=== PATIENT | male | born 1980 | race African-American/Black ===

== ENCOUNTER 2019-03-06 22:27 | Emergency (ER) | payer OTHER ==
[~2019-03-06] VITALS: Ht 177.8 cm; Wt 131.5 kg
[2019-03-06 23:09] LABS: BASOPHILS # (AUTO) 0.1 /CMM (0.0-0.2); EOSINOPHILS % (AUTO) 3.1 % (0.0-6.0); HEMATOCRIT 41 % (39-51); HEMOGLOBIN 13.6 g/dL (13.5-17.5); LYMPHOCYTES # (AUTO) 2.2 /CMM (0.8-4.8); LYMPHOCYTES % (AUTO) 40.4 % (20.0-44.0); MEAN CORPUSCULAR HGB CONC 33 g/dl (31.0-36.0); MEAN CORPUSCULAR VOLUME 90 fL (80-96); MONOCYTES # (AUTO) 0.6 /CMM (0.1-1.30); MONOCYTES % (AUTO) 11.3 % (2.0-12.0); NEUTROPHILS # (AUTO) 2.5 /CMM (1.8-8.9); NEUTROPHILS % (AUTO) 44.2 % (43.0-81.0); PLATELET COUNT (AUTO) 199 /CMM (150-450); RED BLOOD CELL COUNT(AUTO) 4.54 MIL/uL (4.5-6.0); WHITE BLOOD COUNT (AUTO) 5.6 K/uL (4.3-11.0)
[2019-03-06 23:14] LABS: CALCIUM, SERUM 8.6 mg/dL (8.5-10.1); CREATININE 0.9 mg/dL (0.6-1.3); POTASSIUM 3.5 mmol/L (3.5-5.1)
[2019-03-06 23:22] LABS: ALBUMIN 3.4 g/dL (3.4-5.0); BILIRUBIN,DIRECT 0.2 mg/dL (0.0-0.2); BILIRUBIN,TOTAL 0.3 mg/dL (0.2-1.0); SALICYLATE 3.2 mg/dL (2.8-20.0); TOTAL PROTEIN, SERUM 8.2 g/dL (6.4-8.2)
[2019-03-06 23:25] LABS: APPEARANCE,URINE CLEAR (CLEAR); BILIRUBIN,URINE NEGATIVE (NEGATIVE); BLOOD, URINE NEGATIVE Ery/uL (NEGATIVE); COLOR,URINE YELLOW (YELLOW); KETONES,URINE NEGATIVE (NEGATIVE); LEUKOCYTE ESTERASE ,URINE NEGATIVE (NEGATIVE); NITRITE, URINE NEGATIVE (NEGATIVE); PH,URINE 6.5 (5.0-8.0); PROTEIN,URINE NEGATIVE (NEGATIVE); UGLUCOSE NEGATIVE (NEGATIVE); UROBILINOGEN,URINE 0.2 EU/dL (0.2)
--- NOTE | 2019-03-07 00:01 | NUR ---
Patient is resting comfortably in bed with eyes closed. Easily aroused. VSS. SITTER AT BEDSIDE.
--- NOTE | 2019-03-07 02:11 | NUR ---
Patient is resting comfortably in bed with eyes closed. Easily aroused. VSS. SITTER AT BEDSIDE.
--- NOTE | 2019-03-07 05:59 | NUR ---
Patient is resting comfortably in bed with eyes closed. Easily aroused. VSS. SITTER AT BEDSIDE
--- NOTE | 2019-03-07 08:20 | NUR ---
Social service consult requested by Dr. Eden for suicidal ideations and ETOH. Pt. is a 39 year old -[place] male who came to the emergency Department yesterday with complaints of suicidal and homicidal ideation. Per ED MD notes, the pt is also noted to be acutely intoxicated and does admit to alcohol ingestion. Pt. had no no specific plan in which he would hurt himself or someone else. MATERIALS COORDINATOR met with the pt. bedside. Pt. is alert and oriented x 4. Pt. has a sitter bedside. Pt. appears to be over-weight. Pt is cooperative and pleasant with MATERIALS COORDINATOR during the assessment. Pt. states he is homeless and has been for 3 years. Pt. receives GR and Food stamps. Pt is not linked to any housing services in the community. Pt has not heard of the [place] [facility]. MATERIALS COORDINATOR explained the winter residential process. Pt is interested in going to the residential. Pt. uses marijuana occasionally. Pt. smokes up to 4 cigarettes per day. Pt minimized how much alcohol he drinks. When asked, pt. states he only drinks 2 to 3 beers daily, however pt's alcohol lever on arrival in ED was 461. Pt is currently denying suicidal and homicidal ideations and visual/auditory hallucinations at this time. Pt. denies any psychiatric illnesses. Pt. was provided with the [facility] [id number] [place] [facility] list and explained to pt. to closest pickers material handlers location. Pt. was also provided with the following homeless resources: [facility] located at [address] [facility] [facility] [address] ; [place], [address], [place] [place] ; [facility] [place], [address], [place] [place] ; [facility] Homeless Resource Directory which includes food stamps, transitional housing, showers and hot meals etc; Mental Health clinics such as [facility] ; [facility] ; Health clinics;[facility] and Alcohol treatment centers such as [facility], ; [facility] Substance Abuse Hotline and [facility] . Pt. was provided with breakfast and TAP card. Homeless patient waiver form was signed by the pt and placed in pt's chart. SW updated BRYANNA Harper and Dr. Eden with pt's discharge plan.
[2019-03-07 10:12] VITALS: BP 132/65
--- NOTE | 2019-03-07 10:14 | NUR ---
Patient discharged to home in stable condition. Written and verbal after care instructions given. Patient verbalizes understanding of instruction.
== END 2019-03-07 10:12 | disposition home or self-care (01) ==
LOC: ER 22:29
DX: R45.851 Suicidal ideations (principal); R45.850 Homicidal ideations; F10.129 Alcohol abuse with intoxication, unspecified; Y90.8 Blood alcohol level of 240 mg/100 ml or more; Z59.0 Homelessness
CPT/HCPCS: 36415; 80048; 80076; 80305; 80307; 80329; 81001; 85025; 99284; G0480; 81000-TC

== ENCOUNTER 2019-03-07 21:52 | Emergency (ER) | payer OTHER ==
[~2019-03-07] VITALS: Ht 188 cm; Wt 120.2 kg
--- NOTE | 2019-03-07 22:01 | NUR ---
BIBS [facility] C/O "ABD USAMA, CP, AND BLOOD IN STOOL" SINCE YESTERDAY, PT TO BED 6, AWKE, ALERT, -SOB, NAD NOTED, VSS, PENDING MD FAGAN
[2019-03-08 00:14] LABS: BASOPHILS # (AUTO) 0.1 /CMM (0.0-0.2); BASOPHILS % (AUTO) 1.3 % (0.0-2.0); EOSINOPHILS % (AUTO) 3.5 % (0.0-6.0); HEMATOCRIT 39 % (39-51); HEMOGLOBIN 13.1 g/dL (13.5-17.5); LYMPHOCYTES # (AUTO) 1.7 /CMM (0.8-4.8); LYMPHOCYTES % (AUTO) 34.6 % (20.0-44.0); MEAN CORPUSCULAR HGB CONC 34 g/dl (31.0-36.0); MEAN CORPUSCULAR VOLUME 90 fL (80-96); MONOCYTES # (AUTO) 0.6 /CMM (0.1-1.30); MONOCYTES % (AUTO) 11.6 % (2.0-12.0); NEUTROPHILS # (AUTO) 2.5 /CMM (1.8-8.9); PLATELET COUNT (AUTO) 182 /CMM (150-450); RED BLOOD CELL COUNT(AUTO) 4.31 MIL/uL (4.5-6.0)
[2019-03-08 00:25] LABS: CALCIUM, SERUM 8.7 mg/dL (8.5-10.1); CARBON DIOXIDE 28 mmol/L (21-32); CHLORIDE 103 mmol/L (98-107); CREATININE 0.9 mg/dL (0.6-1.3); GLUCOSE 111 mg/dL (74-106); POTASSIUM 3.4 mmol/L (3.5-5.1); SODIUM SERUM 140 mmol/L (136-145); UREA NITROGEN, BLOOD 13 mg/dL (7-18)
[2019-03-08 00:36] LABS: ALANINE AMINOTRANSFERASE 57 U/L (12-78); ALBUMIN 3.2 g/dL (3.4-5.0); ALKALINE PHOSPHATASE 122 U/L (46-116); ASPARTATE AMINOTRANSFERASE 73 U/L (15-37); BILIRUBIN,DIRECT 0.1 mg/dL (0.0-0.2); BILIRUBIN,TOTAL 0.4 mg/dL (0.2-1.0); TOTAL PROTEIN, SERUM 7.9 g/dL (6.4-8.2)
[2019-03-08 00:37] LABS: B-TYPE NATRIURETIC PEPTIDE < 5 PG/ML (0-125)
[2019-03-08] MEDS ORDERED: NITROGLYCERIN PACKET 1 GM PACKET ONE (00:40)
[2019-03-08] MEDS ORDERED: HYDROCODONE/APAP 10/325MG 1 EA TABLET ONE (00:40)
[2019-03-08] MEDS ORDERED: ONDANSETRON 4 MG TAB.RAPDIS ONE (00:40)
[2019-03-08] MEDS ORDERED: ASPIRIN 81 MG TAB.CHEW ONE (00:40)
[2019-03-08] MEDS: HYDROCODONE/APAP 10/325MG 1 EA TABLET PO ONE (00:52)
[2019-03-08] MEDS: NITROGLYCERIN PACKET 1 GM PACKET TD ONE (00:52)
[2019-03-08] MEDS: ASPIRIN 81 MG TAB.CHEW PO ONE (00:52)
[2019-03-08] MEDS: ONDANSETRON 4 MG TAB.RAPDIS SL ONE (00:52)
--- NOTE | 2019-03-08 08:40 | NUR ---
maryellen ordonez at bedside for eval
--- NOTE | 2019-03-08 09:18 | NUR ---
Patient discharged to home in stable condition. Written and verbal after care instructions given. Patient verbalizes understanding of instruction.
[2019-03-08 09:19] VITALS: BP 136/77
--- NOTE | 2019-03-08 10:29 | NUR ---
Social service consult requested by ARVIND Zamora for homelessness and ETOH. Per ED MD note, Pt. reports abdominal pain, chest pain, perhaps some small amount of blood in his stool since yesterday when he was here in the emergency room. Pt. denies suicidal ideations and consumption of alcohol, however pt's alcohol level is 461. PROTECTION SPECIALIST met with the pt. bedside. PROTECTION SPECIALIST is familiar with the pt from yesterday's visit in the ED. Pt. was in the ED yesterday for alcohol consumption as well. Pt. is alert and oriented x 4. PROTECTION SPECIALIST encouraged pt. to go to an alcohol rehabilitation program. Pt stated, he wants to change and stop drinking. Pt is homeless. Pt. currently denies suicidal and homicidal ideations and visual/auditory hallucinations at this time. Pt. denies any psychiatric illnesses. Pt. is ambulatory with a steady gait. PROTECTION SPECIALIST provided pt. with active listening, emotional support and supportive counseling. [facility] provided pt. with the following resources: [facility] [id number] Program List, [facility] [address] [facility] [address] [facility] ; [email or web address] [place], [address], [place] [place] ; [facility] [place], [address] ; [facility] Homeless Resource Directory which includes food stamps, transitional housing, showers and hot meals etc; Mental Health clinics such as [facility] ; [facility] ; Health clinics;[facility] and Alcohol treatment centers such as [facility], ; [facility] Substance Abuse Hotline and [facility] . Pt. was provided with breakfast and a TAP card. No other social service needs are requested at this time. PROTECTION SPECIALIST updated and ARVIND Zamora regarding pt's disposition.
== END 2019-03-08 09:19 | disposition home or self-care (01) ==
LOC: ER 21:53
DX: R07.89 Other chest pain (principal); R10.9 Unspecified abdominal pain; R56.9 Unspecified convulsions; K86.0 Alcohol-induced chronic pancreatitis; F10.10 Alcohol abuse, uncomplicated; Y90.9 Presence of alcohol in blood, level not specified
CPT/HCPCS: 36415; 71045; 74176; 80048; 80076; 83690; 83880; 84484 ×2; 85025; 85730; 93005; 99284; Q0162

== ENCOUNTER 2019-03-19 20:44 | Emergency (ER) | payer OTHER ==
[~2019-03-19] VITALS: Ht 182.9 cm; Wt 133.8 kg
[2019-03-19 20:45] VITALS: BP 121/77
[2019-03-19] MEDS ORDERED: ACETAMINOPHEN ES 500 MG TABLET PO ONE (21:30)
--- NOTE | 2019-03-19 22:24 | NUR ---
Patient does not wish to proceed with medical care recommended by ( SUZANNE). Patient given information related to possible complications, up to and including , which could occur as a result of leaving the hospital at this time. Patient verbalizes understanding of risks involved due to leaving against medical advice. Patient has signed AMA form.
== END 2019-03-19 22:24 | disposition left against medical advice (07) ==
LOC: ER 20:45
DX: S82.831A Other fracture of upper and lower end of right fibula, initial encounter for closed fracture (principal); R45.1 Restlessness and agitation; E66.01 Morbid (severe) obesity due to excess calories; Z68.41 Body mass index [BMI] 40.0-44.9, adult; W18.39XA Other fall on same level, initial encounter; Y93.89 Activity, other specified; Y92.89 Other specified places as the place of occurrence of the external cause; Y99.8 Other external cause status; Z59.0 Homelessness
CPT/HCPCS: 73610-TC

== ENCOUNTER 2019-05-03 14:00 | Emergency (ER) | payer MEDICAID, OTHER ==
[~2019-05-03] VITALS: Ht 182.9 cm; Wt 136.1 kg
--- NOTE | 2019-05-03 14:05 | NUR ---
DIRECTOR PERIOPERATIVE IS AT THE BEDSIDE FOR BLOOD DRAW.
--- NOTE | 2019-05-03 14:05 | NUR ---
PT AMBULATED INTO THE LOBBY ACTING AGGESSIVE AND EXPRESSING SI/HI. PT STATED: " I WANT TO KILL EVEYONE I SEE". PT APPEARS INTOXICATED. PT WAS ASSISTED TO BED 15 BY STAFF AND SECURITY. PT WAS PLACED ON THE MONITOR AND CONTINUOUS PULSE OX. PT REMOVED ALL LEADS. PT KEEPS ASKING THE SAME QUESTION AND WANTS STAFF TO TAKE HIM TO THE HOSPITAL. PT IS VERBALLY ABUSIVE TOWARDS STAFF.
--- NOTE | 2019-05-03 15:16 | NUR ---
PT BEGAN SPITTING ON THE GROUND. PT REC'D A FACE MASK.
[2019-05-03 15:21] LABS: BASOPHILS # (AUTO) 0.1 /CMM (0.0-0.2); BASOPHILS % (AUTO) 1.1 % (0.0-2.0); EOSINOPHILS % (AUTO) 2.1 % (0.0-6.0); HEMATOCRIT 41 % (39-51); HEMOGLOBIN 13.7 g/dL (13.5-17.5); LYMPHOCYTES # (AUTO) 2.3 /CMM (0.8-4.8); LYMPHOCYTES % (AUTO) 29.1 % (20.0-44.0); MEAN CORPUSCULAR HGB CONC 34 g/dl (31.0-36.0); MEAN CORPUSCULAR VOLUME 87 fL (80-96); MONOCYTES # (AUTO) 0.8 /CMM (0.1-1.30); MONOCYTES % (AUTO) 9.7 % (2.0-12.0); NEUTROPHILS # (AUTO) 4.7 /CMM (1.8-8.9); PLATELET COUNT (AUTO) 260 /CMM (150-450); RED BLOOD CELL COUNT(AUTO) 4.69 MIL/uL (4.5-6.0)
[2019-05-03 15:23] LABS: CALCIUM, SERUM 8.9 mg/dL (8.5-10.1); CARBON DIOXIDE 25 mmol/L (21-32); CHLORIDE 100 mmol/L (98-107); GLUCOSE 127 mg/dL (74-106); POTASSIUM 3.8 mmol/L (3.5-5.1); SODIUM SERUM 137 mmol/L (136-145); UREA NITROGEN, BLOOD 7 mg/dL (7-18)
[2019-05-03 15:30] LABS: ACETAMINOPHEN < 2 ug/ml (10-30); ALANINE AMINOTRANSFERASE 27 U/L (12-78); ALBUMIN 3.9 g/dL (3.4-5.0); ALCOHOL, BLOOD 410 mg/dL (0-0); ALKALINE PHOSPHATASE 137 U/L (46-116); ASPARTATE AMINOTRANSFERASE 27 U/L (15-37); BILIRUBIN,DIRECT 0.1 mg/dL (0.0-0.2); BILIRUBIN,TOTAL 0.3 mg/dL (0.2-1.0); SALICYLATE 3.7 mg/dL (2.8-20.0); TOTAL PROTEIN, SERUM 8.7 g/dL (6.4-8.2)
[2019-05-03] MEDS ORDERED: LORAZEPAM 1 MG TABLET PO ONE ×2 (16:00→17:00)
[2019-05-03] MEDS ORDERED: LORAZEPAM 1 MG TABLET ONE (16:06)
--- NOTE | 2019-05-03 16:30 | NUR ---
PT STATED THAT HE WANTED TO URINATE. ALBAN, EMT IS AT THE BEDSIDE ASSISTING PT WITH THE URINAL.
[2019-05-03] MEDS ORDERED: ONDANSETRON 4 MG TAB.RAPDIS SL ONE (17:00)
--- NOTE | 2019-05-03 17:05 | NUR ---
PT BECAME AGGITATED. IS SPITTING ON STAFF AND THROWING WATER AT THEM. PT PULLED OFF ALL LEADS FROM THE MONITOR. CODE STEVE WAS CALLED. SECURITY IS AT THE BEDSIDE. PT WAS PLACED IN 4 PT RESTRAINT. PT WANTS HELP, BUT IS INTERFERING IN PT CARE. DR TINSLEY IS AWARE.
--- NOTE | 2019-05-03 17:09 | NUR ---
VERBAL ORDER FROM DR TINSLEY. FOR 50 MG BENADRYL IM, 5 MG HALDOL IM, AND 2 MG ATIVAN IM.
[2019-05-03] MEDS ORDERED: LORAZEPAM INJ 2 MG/ML VIAL ONE (17:10)
[2019-05-03] MEDS ORDERED: diphenhydrAMINE HCL 50 MG/ML VIAL ONE (17:10)
[2019-05-03] MEDS ORDERED: HALOPERIDOL LACTATE INJ 5 MG/ML VIAL ONE (17:10)
--- NOTE | 2019-05-03 17:15 | NUR ---
PT REC'D MEDICATION ORDERED.
[2019-05-03 17:16] LABS: APPEARANCE,URINE Clear (CLEAR); BILIRUBIN,URINE Negative (NEGATIVE); BLOOD, URINE Negative Ery/uL (NEGATIVE); COLOR,URINE Yellow (YELLOW); KETONES,URINE Negative (NEGATIVE); LEUKOCYTE ESTERASE ,URINE Negative (NEGATIVE); NITRITE, URINE Negative (NEGATIVE); PH,URINE 6.5 (5.0-8.0); PROTEIN,URINE Negative (NEGATIVE); UGLUCOSE Negative (NEGATIVE); UROBILINOGEN,URINE 0.2 EU/dL (0.2)
--- NOTE | 2019-05-03 18:00 | NUR ---
PT APPEARS TO BE RELAXING. NO S/S OF AGGITATION. PT IS SLIGHTLY RESTLESS. SITTER AT THE BEDSIDE.
--- NOTE | 2019-05-03 19:05 | NUR ---
RESTRAINT OPENED AND ROM DONE.
[2019-05-03] MEDS ORDERED: LORAZEPAM INJ 2 MG/ML VIAL IM ONE (19:30)
[2019-05-03] MEDS ORDERED: HALOPERIDOL LACTATE INJ 5 MG/ML VIAL IM ONE (19:30)
[2019-05-03] MEDS ORDERED: diphenhydrAMINE HCL 50 MG/ML VIAL IM ONE (19:30)
--- NOTE | 2019-05-03 20:15 | NUR ---
PT APPEARS TO BE RESTING COMFORTABLY WITH NO S/S OF PAIN OR DISTRESS.
--- NOTE | 2019-05-03 21:10 | NUR ---
RESTRAINTS OPENED UP AND ROM DONE.
--- NOTE | 2019-05-03 22:05 | NUR ---
PT IS SLEEPING SOUNDLY WITH NO S/S OF PAIN OR DISTRESS.
--- NOTE | 2019-05-03 23:10 | NUR ---
RESTRAINTS REMOVED. PT IS SLEEPING BUT EASILY AROUSED. PT REC'D MORE WARM BLANKETS AND WILL CONTINUE TO BE MONITORED. SITTER IS AT THE BEDSIDE.
--- NOTE | 2019-05-04 02:09 | NUR ---
PT APPEARS TO BE SLEEPING SOUNDLY WITH NO S/S OF PAIN OR DISTRES. SITTER IS AT THE BEDSIDE.
--- NOTE | 2019-05-04 07:21 | NUR ---
ASSESSED PT ON BED ASLEEP, EASILY AROUSABLE,AAOX3, NOT IN RESPIRATORY DISTRESS, V/S STABLE, KEPT RESTED AND COMFORTABLE, WILL CONTINUE TO MONITOR.
--- NOTE | 2019-05-04 08:20 | NUR ---
PRIYA KRUEGER AT BEDSIDE FOR EVAL.
--- NOTE | 2019-05-04 08:20 | NUR ---
PT STATED HE IS FEELING SUICIDAL AND WANTS TO JUMP IN FRONT OF THE TRAIN.
--- NOTE | 2019-05-04 08:24 | NUR ---
Social service consult requested by MD for homelessness and ETOH. Per MD notes, pt is 39-year-old male who presented to the ED yesterday for evaluation of acute alcohol intoxication. The patient is self-referred. He was agitated and uncooperative upon arrival to the emergency department. Per chart review, the patient was seen at this emergency department on 03/06/2019 for acute alcohol intoxication. CT abdomen/pelvis obtained on 03/07/2019 showed ventral hernia. MIXING AND MOLDING MACHINE OPERATOR met with the pt bedside. Pt is alert and oriented x 4. Pt had his body and partial face covered with a sheet. Pt states he is homeless and suicidal. Pt reports his plan is to run in front of a train. MIXING AND MOLDING MACHINE OPERATOR contacted [facility] and initiated [facility] process to [facility]. Per Nixon, they will have a bed for the pt. MIXING AND MOLDING MACHINE OPERATOR to fax clinicals once pt"s alcohol level is below 100.
--- NOTE | 2019-05-04 08:24 | NUR ---
SECURITY AT BEDSIDE FOR WANDING.
--- NOTE | 2019-05-04 08:39 | NUR ---
NITHIN received a call from Kalpesh from [facility] intake requesting clinicals. NITHIN informed her she will send the fax as soon as pt's alcohol level is below 100.
--- NOTE | 2019-05-04 09:45 | NUR ---
er phleb at bedside for blood draw.
--- NOTE | 2019-05-04 10:40 | NUR ---
Clinical faxed to [facility] Addendum: 05/04/19 at 1116 by PRIYA KRUEGER WING SCORER received a callback from Kalpesh at [facility] informing SW she received the clinicals and will fax them to [facility].
--- NOTE | 2019-05-04 13:09 | NUR ---
PT ASLEEP ON BED EASILY AROUSABLE, AAOX4, NOT IN RESPIRATORY DISTRESS, V/S STABLE, KEPT RESTED AND COMFORTABLE, AWAITING TRANSFER INFO TO [facility].
--- NOTE | 2019-05-04 13:10 | NUR ---
PT WILL GO TO [facility].
--- NOTE | 2019-05-04 13:18 | NUR ---
DRY JANITOR received a call from Nixon BISHOP stating that he spoke with Jj in intake at [facility] and pt. is 3rd on the list and confirmed they will accept the pt.
--- NOTE | 2019-05-04 13:52 | NUR ---
NITHIN contacted Jj at [facility] for an update. Per Jj, they will have a bed for the pt. They are awaiting discharges and will have a bed after 4:30-5PM. NITHIN informed Jj to follow up with ED if it is after 4:30PM and speak to ARVIND Poon. Addendum: 05/04/19 at 1359 by PRIYA KRUEGER NITHIN informed Shad in ED to update [facility] with aforementioned information.
[2019-05-04 14:00] VITALS: BP 119/77
--- NOTE | 2019-05-04 15:03 | NUR ---
Pt accepted to [facility] Accepting MD is Dr. Ocampo Number for report is [phone]
--- NOTE | 2019-05-04 15:30 | NUR ---
PT STATED HE IS NOT SUICIDAL MD AND SW AWARE.
--- NOTE | 2019-05-04 15:31 | NUR ---
BILLING MANAGER was informed by ED that pt is requesting to leave and is not suicidal anymore. BILLING MANAGER met with the pt bedside. Pt is alert and oriented x 4. Pt is calm and cooperative with SW. SW is familiar with the pt from previous ED visits for the same reasons, alcohol intoxication. Pt appears to not remember anything from yesterday's events. Pt's alcohol level yesterday on arrival was over 400. Pt is sober and stating he is no longer having SI and HI. Pt denies visual/auditory hallucinations at this time. Pt was accepted to [facility] but pt declined at this time. SW encouraged pt to attend an alcohol rehab program and provided referrals. Pt is ambulatory with a steady gait. BILLING MANAGER provided pt with homeless packet which includes [facility] [phone] [facility] Home program list, [facility] located at [address] ; [facility] [place], [address], [place] ; [employer] [place], [address] [place] ; [facility] Homeless Resource Directory which includes food stamps, transitional housing, showers and hot meals etc; Mental Health clinics such as [facility] ; [facility] Health ; Health clinics;[facility] and Alcohol treatment centers such as [facility], ; [facility] Substance Abuse Hotline and [facility] . Homeless Patient waiver form was signed by the pt. and placed in pt's chart. TAP card was provided. and ARVIND Poon have been updated with pt's discharge plan.
--- NOTE | 2019-05-04 15:41 | NUR ---
Patient given written and verbal discharge instructions. Patient verbalizes understanding of instructions. Patient is ambulatory with steady gait. Refuses offer of residential placement. Patient given list of available shelters in surrounding area.
== END 2019-05-04 15:45 | disposition home or self-care (01) ==
LOC: ER 14:00
DX: F10.129 Alcohol abuse with intoxication, unspecified (principal); G40.909 Epilepsy, unspecified, not intractable, without status epilepticus; Y90.8 Blood alcohol level of 240 mg/100 ml or more; Z59.0 Homelessness
CPT/HCPCS: 36415 ×2; 80048; 80076; 80305; 80307 ×3; 80329; 81001; 85025; 96372 ×2; 99285; G0480; J1200; J1630; J2060; 81000-TC

== ENCOUNTER 2019-05-04 19:17 | Emergency (ER) | payer MEDICAID ==
[~2019-05-04] VITALS: Ht 182.9 cm; Wt 136.1 kg
[2019-05-04 19:17] VITALS: BP 142/76
--- NOTE | 2019-05-04 19:40 | NUR ---
PT NOT IN WAITING ROOM FOR ROOM ASSIGNMENT.
[2019-05-04] MEDS ORDERED: ONDANSETRON HCL/PF 4 MG/2 ML VIAL ONE (22:01)
== END 2019-05-04 22:05 | disposition home or self-care (01) ==
LOC: ER 19:17
DX: Z53.21 Procedure and treatment not carried out due to patient leaving prior to being seen by health care provider (principal); M79.10 Myalgia, unspecified site
CPT/HCPCS: J2405

== ENCOUNTER 2019-05-04 23:28 | Emergency (ER) | payer MEDICAID ==
[~2019-05-04] VITALS: Ht 182.9 cm; Wt 136.1 kg
[2019-05-05] MEDS ORDERED: IV NS 0.9% 1,000 ML BAG IV ONE
[2019-05-05 00:30] LABS: BASOPHILS % (AUTO) 0.5 % (0.0-2.0); EOSINOPHILS % (AUTO) 4.3 % (0.0-6.0); HEMATOCRIT 39 % (39-51); LYMPHOCYTES # (AUTO) 2.1 /CMM (0.8-4.8); LYMPHOCYTES % (AUTO) 30.9 % (20.0-44.0); MEAN CORPUSCULAR HGB CONC 34 g/dl (31.0-36.0); MEAN CORPUSCULAR VOLUME 87 fL (80-96); MONOCYTES # (AUTO) 0.7 /CMM (0.1-1.30); MONOCYTES % (AUTO) 10.2 % (2.0-12.0); NEUTROPHILS # (AUTO) 3.7 /CMM (1.8-8.9); NEUTROPHILS % (AUTO) 54.1 % (43.0-81.0); PLATELET COUNT (AUTO) 247 /CMM (150-450); RED BLOOD CELL COUNT(AUTO) 4.45 MIL/uL (4.5-6.0); WHITE BLOOD COUNT (AUTO) 6.9 K/uL (4.3-11.0)
--- NOTE | 2019-05-05 00:33 | NUR ---
BIBRA TO ER BED 14. AAOX4. NOT IN RESP DISTRESS NOTED. BREATHING EVEN AND UNLABORED. AMBULATORY. C/O GEN BODY MAKAYLA AND BLOOD IN STOOL THAT STARTED YESTERDAY. PT RATES HER PAIN 10/10 - ACHING. NO BM TO BE EVALUATED FOR BLOOD AT THIS TIME. MD AT BEDSIDE FOR EVAL. ORDERS RECEIVED, NOTED AND CARRIED OUT. IV LINE OBTAINED ON THE R HAND 20G. BLOOD DRAWN AND GIVEN TO TEACHER INSTRUMENTAL AT BEDSIDE.
[2019-05-05 00:37] LABS: CALCIUM, SERUM 8.7 mg/dL (8.5-10.1); CREATININE 1.2 mg/dL (0.6-1.3); POTASSIUM 3.6 mmol/L (3.5-5.1)
[2019-05-05 00:43] LABS: ALBUMIN 3.6 g/dL (3.4-5.0); BILIRUBIN,DIRECT 0.1 mg/dL (0.0-0.2); BILIRUBIN,TOTAL 0.2 mg/dL (0.2-1.0); TOTAL PROTEIN, SERUM 8.2 g/dL (6.4-8.2)
--- NOTE | 2019-05-05 00:49 | NUR ---
PT TO CT
--- NOTE | 2019-05-05 01:44 | NUR ---
PT AMBULATED TO BATHROOM W/O ASSIT ON STEAD GAIT
--- NOTE | 2019-05-05 02:14 | NUR ---
PT WAS BEING DISCHARGED AND NOW CLAINS THAT HE IS SUICIDAL, PLANS TO GET RUN OVER BY A TRAIN. PT'S BELONGAINGS FROM PT AND PLACED ON GOWN.
--- NOTE | 2019-05-05 03:00 | NUR ---
PT FROVIDED WITH SANDWHICH AND JUICE
[2019-05-05 03:45] LABS: SALICYLATE 3.2 mg/dL (2.8-20.0)
--- NOTE | 2019-05-05 03:53 | NUR ---
PT IN BED SLEEPING COMFORTABLY. NO DISTRESS NOTED
--- NOTE | 2019-05-05 06:03 | NUR ---
AT BEDSIDE FOR EVAL.
--- NOTE | 2019-05-05 08:14 | NUR ---
Patient given written and verbal discharge instructions. Patient verbalizes understanding of instructions. Patient is ambulatory with steady gait. Refuses offer of nursing home placement. Patient given list of available shelters in surrounding area.
[2019-05-05 08:15] VITALS: BP 131/88
== END 2019-05-05 08:20 | disposition home or self-care (01) ==
LOC: ER 23:29
DX: K62.5 Hemorrhage of anus and rectum (principal); R11.10 Vomiting, unspecified; Z59.0 Homelessness
CPT/HCPCS: 36415; 71045; 74176; 80048; 80076; 80305; 80307; 80329; 83690; 85025; 85730; 86850; 96360; 99285; G0480; J7030